=== PATIENT | female | born 2000 | race Caucasian/White ===

== ENCOUNTER 2025-07-21 18:31 | Inpatient (IN) ==
[2025-07-21] MEDS ORDERED: OXYTOCIN/SODIUM CHLORIDE 500 ML IV PRN (19:04)
[2025-07-21] MEDS ORDERED: fentaNYL 100 MCG/2 ML VIAL IVP PRN (19:04)
[2025-07-21] MEDS ORDERED: LABETALOL 20 MG/4 ML SYRINGE IVP PRN ×3 (19:04)
[2025-07-21] MEDS ORDERED: METOCLOPRAMIDE 10 MG/2 ML VIAL IVP PRN (19:04)
[2025-07-21] MEDS ORDERED: OXYTOCIN 10 UNIT/ML VIAL IM PRN (19:04)
[2025-07-21] MEDS ORDERED: CALCIUM CARBONATE CHEW 500 MG TABLET PO PRN (19:04)
[2025-07-21] MEDS ORDERED: ONDANSETRON ODT 4 MG TABLET PO PRN (19:04)
[2025-07-21] MEDS ORDERED: IBUPROFEN 600 MG TABLET PO PRN (19:04)
[2025-07-21] MEDS ORDERED: ONDANSETRON 4 MG/2 ML VIAL IVP PRN (19:04)
[2025-07-21] MEDS ORDERED: METHYLERGONOVINE 0.2 MG/ML VIAL IM PRN (19:04)
[2025-07-21] MEDS ORDERED: CARBOPROST TROMETHAMINE 250 MCG/ML VIAL IM PRN (19:04)
[2025-07-21] MEDS ORDERED: hydrALAZINE INJ 20 MG/ML VIAL IVP PRN ×2 (19:04)
[2025-07-21] MEDS ORDERED: METOCLOPRAMIDE 10 MG TABLET PO PRN (19:04)
[2025-07-21] MEDS ORDERED: LACTATED RINGERS 1,000 ML IV PRN (19:04)
[2025-07-21] MEDS ORDERED: ACETAMINOPHEN 500 MG TABLET PO PRN (19:04)
[2025-07-21] MEDS ORDERED: TERBUTALINE 1 MG/ML VIAL SUBQ PRN (19:04)
[2025-07-21] MEDS ORDERED: TRANEXAMIC ACID IN NACL 1,000 MG/100 ML BAG IV PRN (19:04)
[2025-07-21 21:34] LABS: HCT - HEMATOCRIT 37.0 % (37.0-47.0); HGB - HEMOGLOBIN 12.6 g/dL (12.0-16.0); MEAN PLATELET VOLUME 9.9 fL (7.9-10.8); NRBC ABSOLUTE COUNT (AUTO) 0.00 x10^3/uL; NUCLEATED RED BLOOD CELLS AUTO 0.0 /100WBC; PLT - PLATELET COUNT 218 10^3/uL (130-450); RED CELL DISTRIBUTION WIDTH 13.1 % (12.0-15.0)
--- NOTE | 2025-07-21 21:42 | ANESTHESIA PROCEDURE NOTE ---
Pre-Anesthesia VS, & Labs Diagnosis Surgical Diagnosis:: intrauterine demise Procedure Procedure: epidural for Vitals Vital Signs: Temp Pulse Resp BP Pulse Ox 36.7 C 93 15 128/81 99 07/21/25 20:51 07/21/25 20:51 07/21/25 20:51 07/21/25 20:51 07/21/25 20:51 NPO Last Fluid Intake: t/o noc Last Food Intake: lunch Is Patient ?: Yes Lab Results Lab results reviewed: Yes Meds/Allgy Home Medications Ambulatory Orders Medication Instructions Recorded Confirmed cod liver oil PO 07/21/25 07/21/25 magnesium chloride PO 07/21/25 07/21/25 vits no.130-ferrous fum 1 tab PO QDAY 5 07/21/25 27 mg iron-folic acid 800 mcg tablet ( Vitamin) Allergies Allergies Allergy/AdvReac Type Severity Reaction Status Date / Time No Known Drug Allergies Allergy Verified 07/21/25 16:18 PFSH Active Problems All Active Problems (Updated 07/21/25 @ 19:05 by Amira Gonzalez MD) Encounter for induction of labor (Acute) demise (Acute) Surgical History Surgical History (Updated 07/21/25 @ 21:41 by Pramod Alvarez CRNA) [place] teeth extracted Family History Family History (Updated 07/21/25 @ 16:18 by Chioma Dye MA) Grandfather Asthma Diabetes Congenital heart disease High blood pressure Grandmother Cancer Social History Social History (Updated 07/21/25 @ 16:20 by Chioma Dye MA) Smoking Status: Never smoker Second hand tobacco smoke exposure: No Do you dip or chew tobacco?: No Do you vape?: No Living arrangement: At home Marital Status: Living Condition: With spouse/s.o. and With family Support Person: Yes Physical Activity: other Level: Independent Frequency: Occasional Substance Use: denies use Are you sexually active?: Yes Anesthesia Exam (Expanded) Exam General: Alert, Oriented x3 and Cooperative Dental: WNL Mouth Openin Fingerbreadth Neck Mobility: Normal Respiratory: No respiratory distress Cardiovascular: Regular rate Neurological: Normal speech Mental/Cognitive Status: Alert/Oriented X3 and Normal for patient Cognitive Status: Within normal limits Exam Exam Vital Signs: Vital Signs x48h Temp Pulse Resp BP Pulse Ox 07/21/25 20:51 36.7 C 93 15 128/81 99 Plan Plan Anesthesia Type: Epidural Consent for Procedure(s) Verified and Reviewed: Yes Code Status: Attempt Resuscitation ASA Classification ASA classification: 2-Mild systemic disease Is this case an emergency?: No
[2025-07-21 21:50] LABS: ALT ALANINE AMINOTRANSFERASE 12.0 IU/L (10-60); AST ASPARTATE AMINOTRANSFERASE 15.0 IU/L (10-42); BUN - BLOOD UREA NITROGEN 10.0 mg/dL (6-20); CARBON DIOXIDE - CO2 24.0 mmol/L (21-32); CREATININE 0.5 mg/dL (0.6-1.3); GFR - MDRD 150.0 (>89)
--- NOTE | 2025-07-21 22:06 | Ultrasound Report ---
PROCEDURE: US OB Follow up INDICATIONS: confirmation of IUFD, gender if possible OUTSIDE/PRIOR DATING DATA: Working ARNOLDO: 09/26/2025. TECHNIQUE: Real-time scanning was performed of the fetus, with image documentation and biometric measurements. Endovaginal scanning: Not performed. COMPARISON: None. FINDINGS: General: A single living intrauterine gestation is present. Presentation: Breech Placenta: Placental position is anterior, without previa. Amniotic fluid index: 12 cm, within normal limits for gestational age. Largest pocket 4.3 cm. heart rate: No cardiac motion on cine. No color flow. No motion on M-mode. Maternal cervical canal: Not well seen. biometrics: Biparietal diameter: 7.1 cm, 28 weeks 3 days. 2nd percentile. Head circumference: 28.9 cm, 31 weeks 6 days. 55th percentile. Abdominal circumference: 26.7 cm, 30 weeks 6 days. 58th percentile. Femur length: 5.6 cm, 29 weeks 4 days. 15 percentile. Estimated gestational age from initial scan: 30 weeks 3 days Composite gestational age from present scan: 30 weeks 1 day Estimated weight and percentile: 1556 g, 34th percentile Measurement variability in biometric dating: +/- 10 days from 12-20 weeks gestation, +/- 2 weeks from 20-30 weeks gestation, +/- 3 weeks at 30 weeks gestation or more. Other: No motion. Maternal adnexa are unremarkable. IMPRESSION: 1. Mayes intrauterine at 30 weeks 1 day based on today's ultrasound. No cardiac activity. No motion. Ultrasound findings diagnostic of failure. 2. Normal placenta and amniotic fluid. Reviewed by: Abimael Finney MD on 07/21/2025 10:03 PM PDT Approved by: Abimael Finney MD on 07/21/2025 10:03 PM PDT Station ID: [id number]
--- NOTE | 2025-07-21 23:42 | HISTORY & PHYSICAL EXAMINATION ---
Admit History Smoking Status: Never smoker Other Maternal History Other Maternal History: HPI: Rekha is a 25 yo at 30w3d by known ARNOLDO who is admitted for induction of labor in the setting of IUFD. She has received care with Elizabeth Eckert. Reports that she was feeling normal movement on Sunday, but then on Sunday, realized at the end of the day that she had not felt baby moving. Then, into the night, she still had not felt any movement and saw called her area counselor, was diagnosed with IUFD with ultrasound. She denies any recent illness. Reports having some nausea on Sunday but attributed that to eating food outside of normal. No recent febrile illnesses. Reports has been uncomplicated. She did not have an anatomy ultrasound or genetic screening. She reports occasional maria g gray, but denies any regular painful contractions, LOF, vaginal bleeding. She reports that her mom was recently diagnosed with Factor V Leiden. records reviewed: - Rh neg - declined rhogam at 29wks as partner is non Rh neg - Antibody screen neg - No glucola, did 7 days of finger sticks which were normal - RPR non reactive - Rubella immune - HepBsAg non reactive - GC/CT neg - TSH 0.64 - Ferritin 48 PE: Vitals signs reviewed Gen: NAD Resp: non labored respirations Abd: gravid, non tender. Ext: trace LE edema. SVE: attempted, however, Rekha very uncomfortable so did not complete. On Ultrasound, breech presentation noted. We discussed risks/benefits of external cephalic version versus proceeding with IOL with breech presentation, and she did desire trial of ECV. She was not mary ellen prior or during ECV attempt so terbutaline was not administered. I attempted a forward role for baby 3 times, elevated the breech out of the pelvis without success. I then attempted a backward roll, also without success. Recommended no further attempts. Formal US ordered to confirm IUFD: PROCEDURE: US OB Follow up INDICATIONS: confirmation of IUFD, gender if possible OUTSIDE/PRIOR DATING DATA: Working ARNOLDO: 09/26/2025. TECHNIQUE: Real-time scanning was performed of the fetus, with image documentation and biometric measurements. Endovaginal scanning: Not performed. COMPARISON: None. FINDINGS: General: A single living intrauterine gestation is present. Presentation: Breech Placenta: Placental position is anterior, without previa. Amniotic fluid index: 12 cm, within normal limits for gestational age. Largest pocket 4.3 cm. heart rate: No cardiac motion on cine. No color flow. No motion on M-mode. Maternal cervical canal: Not well seen. biometrics: Biparietal diameter: 7.1 cm, 28 weeks 3 days. 2nd percentile. Head circumference: 28.9 cm, 31 weeks 6 days. 55th percentile. Abdominal circumference: 26.7 cm, 30 weeks 6 days. 58th percentile. Femur length: 5.6 cm, 29 weeks 4 days. 15 percentile. Estimated gestational age from initial scan: 30 weeks 3 days Composite gestational age from present scan: 30 weeks 1 day Estimated weight and percentile: 1556 g, 34th percentile Measurement variability in biometric dating: +/- 10 days from 12-20 weeks gestation, +/- 2 weeks from 20-30 weeks gestation, +/- 3 weeks at 30 weeks gestation or more. Other: No motion. Maternal adnexa are unremarkable. IMPRESSION: 1. Mayes intrauterine at 30 weeks 1 day based on today's ultrasound. No cardiac activity. No motion. Ultrasound findings diagnostic of failure. 2. Normal placenta and amniotic fluid. Reviewed by: Abimael Finney MD on 07/21/2025 10:03 PM PDT Approved by: Abimael Finney MD on 07/21/2025 10:03 PM PDT A/P: Rekha is a 25 yo at 30w3d by known ARNOLDO who is admitted for induction of labor in the setting of IUFD. - IUFD - Rh neg, father known Rh neg Labs ordered to evaluate for underlying cause per ACOG recommendations. At this time, Rekha is uncertain about autopsy, placental pathology, and genetic testing. Discussed IOL with breech presentation, alternative would be delivery. ECV attempted, but unsuccessful. We discussed that delivery of the head can take some time after body delivers, possible head entrapement, possibility of needing to use forceps for delivery of the head. She did desire to proceed with IOL. Induction process was reviewed, plan to start with PO misoprostol. Discussed limiting cervical exams. Pain management per her request. Planning for epidural. Amira Gonzalez MD HPI Current : Vital Signs Temperature 36.7 C 07/21/25 20:51 Pulse Rate 93 07/21/25 20:51 Respiratory Rate 15 07/21/25 20:51 Blood Pressure 128/81 07/21/25 20:51 O2 Saturation 99 07/21/25 20:51 Meds/Allgy Home Medications Ambulatory Orders Medication Instructions Recorded Confirmed cod liver oil PO 07/21/25 07/21/25 magnesium chloride PO 07/21/25 07/21/25 vits no.130-ferrous fum 1 tab PO QDAY 5 07/21/25 27 mg iron-folic acid 800 mcg tablet ( Vitamin) Allergies Allergies Allergy/AdvReac Type Severity Reaction Status Date / Time No Known Drug Allergies Allergy Verified 07/21/25 16:18 PFSH Active Problems All Active Problems (Updated 07/21/25 @ 19:05 by Amira Gonzalez MD) Encounter for induction of labor (Acute) demise (Acute) Surgical History Surgical History (Updated 07/21/25 @ 21:41 by Pramod Alvarez CRNA) [place] teeth extracted Family History Family History (Updated 07/21/25 @ 16:18 by Chioma Dye MA) Grandfather Asthma Diabetes Congenital heart disease High blood pressure Grandmother Cancer Social History Social History (Updated 07/21/25 @ 16:20 by Chioma Dye MA) Smoking Status: Never smoker Second hand tobacco smoke exposure: No Do you dip or chew tobacco?: No Do you vape?: No Living arrangement: At home Marital Status: Living Condition: With spouse/s.o. and With family Support Person: Yes Physical Activity: other Level: Independent Frequency: Occasional Substance Use: denies use Are you sexually active?: Yes Physical Abdominal Exam Vital Signs: Temp Pulse Resp BP Pulse Ox 36.7 C 93 15 128/81 99 07/21/25 20:51 07/21/25 20:51 07/21/25 20:51 07/21/25 20:51 07/21/25 20:51 Plan for Labor Plan For Labor I expect patient to be DC'd or transferred within 96 hours.: Yes Conclusion/Plan Problem List (1) Encounter for induction of labor: (2) demise: Lab Results Lab results reviewed: Yes 07/21/25 21:00 07/21/25 21:00
--- NOTE | 2025-07-22 09:13 | PROVIDER PROGRESS NOTE ---
Subjective Subjective Subjective: Patient doing well today. Does states she cramps about 20 minutes after receiving her dose of misoprostol and then mild cramps for an hour then nothing in between doses. She does desire to go home today and says her teacher tutor is willing to manage her home. Current Medications Current Medications Current Medications: Current Medications Generic Name Dose Route Start Last Admin Trade Name Freq PRN Reason Stop Dose Admin Acetaminophen 1,000 mg 07/21/25 19:04 Acetaminophen 500 Mg Tablet PO Q8H PRN Mild Pain or Fever>38C(100.4F) Calcium Carbonate/Glycine 1,000 mg 07/21/25 19:04 Calcium Carbonate Chew 500 Mg Tablet PO Q6HR PRN Heartburn Carboprost Tromethamine 250 mcg 07/21/25 19:04 Carboprost Tromethamine 250 Mcg/Ml Vial IM .ONCE PRN Hemorrhage Fentanyl 50 mcg 07/21/25 19:04 Fentanyl 100 Mcg/2 Ml Vial IVP Q1H PRN Severe Pain (score 7-10) Hydralazine HCl 5 - 10 mg 07/21/25 19:04 Hydralazine Inj 20 Mg/Ml Vial IVP Q20M PRN SBP> or= 160 OR DBP> or= 110 Protocol Hydralazine HCl 10 mg 07/21/25 19:04 Hydralazine Inj 20 Mg/Ml Vial IVP .ONCE PRN SBP> or= 160 OR DBP> or= 110 Protocol Lactated Ringer's 500 mls @ 999 mls/hr 07/21/25 19:04 Lr IV PRN PRN Abdominal Pain Oxytocin/Sodium Chloride 500 mls @ 999 mls/hr 07/21/25 19:04 Pitocin/Sodium Chloride IV PRN PRN POST- HEMORR PREVENTION Protocol 999 MILLIUNIT/MIN Tranexamic Acid 1,000 mg in 100 mls @ 600 mls/hr 07/21/25 19:04 Tranexamic 1,000 Mg/100ml-Nacl IV Q30M PRN EBL >1200mL and within 3hr Ibuprofen 600 mg 07/21/25 19:04 Ibuprofen 600 Mg Tablet PO Q6HR PRN Moderate Pain (Level 4-6) Labetalol HCl 20 - 80 mg 07/21/25 19:04 Labetalol 20 Mg/4 Ml Syringe IVP Q10M PRN SBP> or= 160 OR DBP> or= 110 Protocol Labetalol HCl 20 mg 07/21/25 19:04 Labetalol 20 Mg/4 Ml Syringe IVP .ONCE PRN SBP> or= 160 OR DBP> or= 110 Protocol Labetalol HCl 20 - 40 mg 07/21/25 19:04 Labetalol 20 Mg/4 Ml Syringe IVP Q10M PRN SBP> or= 160 OR DBP> or= 110 Protocol Lidocaine HCl 20 ml 07/21/25 19:04 Lidocaine 1% 20 Ml Mdv ID 07/24/25 19:04 .ONCE PRN PERINEAL REPAIR Methylergonovine Maleate 0.2 mg 07/21/25 19:04 Methylergonovine 0.2 Mg/Ml Vial IM .ONCE PRN Hemorrhage Metoclopramide HCl 5 mg 07/21/25 19:04 Metoclopramide 10 Mg/2 Ml Vial IVP Q6HR PRN Nausea / Vomiting Metoclopramide HCl 5 mg 07/21/25 19:04 Metoclopramide 10 Mg Tablet PO Q6HR PRN Nausea / Vomiting Misoprostol 600 mcg 07/21/25 19:04 Misoprostol 200 Mcg Tablet BC .ONCE PRN Hemorrhage Misoprostol 800 mcg 07/21/25 19:04 Misoprostol 200 Mcg Tablet CO .ONCE PRN Hemorrhage Misoprostol 50 mcg 07/21/25 23:45 07/22/25 06:08 Misoprostol 100 Mcg Tablet PO 07/22/25 17:46 50 mcg Q6H MERT Administration Nifedipine 10 - 20 mg 07/21/25 19:04 Nifedipine 10 Mg Capsule PO Q20M PRN SBP> or= 160 OR DBP> or= 110 Protocol Ondansetron HCl 4 mg 07/21/25 19:04 Ondansetron Odt 4 Mg Tablet PO Q4HR PRN Nausea / Vomiting Ondansetron HCl 4 mg 07/21/25 19:04 Ondansetron 4 Mg/2 Ml Vial IVP PRN PRN Nausea / Vomiting Oxytocin 10 unit 07/21/25 19:04 Oxytocin 10 Unit/Ml Vial IM .ONCE PRN Step One if no IV access. Sodium Chloride 10 ml 07/21/25 19:04 Sodium Chloride Flush 0.9% 10 Ml Syringe IVP PRN PRN NEEDED PER PROVIDER ORDERS Sodium Chloride 10 ml 07/21/25 20:00 Sodium Chloride Flush 0.9% 10 Ml Syringe IVP Q8H MERT Terbutaline Sulfate 0.25 mg 07/21/25 19:04 Terbutaline 1 Mg/Ml Vial SUBQ .ONCE PRN Tachystole Objective Vital Signs/Intake & Output Vital Signs: Vital Signs x48h Temp Pulse Resp BP Pulse Ox 07/22/25 05:54 36.8 C 89 17 112/63 98 Objective General Appearance: positive No acute distress and Alert Lab Results 07/21/25 21:00 07/21/25 21:00 Other Labs: Lab Results x24hrs 07/21/25 07/21/25 07/21/25 Range/Units 21:42 21:42 21:00 WBC 11.9 H (4.8-10.8) x10^3/uL RBC 4.01 L (4.20-5.40) 10^6/uL Hgb 12.6 (12.0-16.0) g/dL Hct 37.0 (37.0-47.0) % MCV 92.3 (81.0-99.0) fL MCH 31.4 H (27.0-31.0) pg MCHC 34.1 (32.0-36.0) g/dL RDW 13.1 (12.0-15.0) % Plt Count 218 (130-450) 10^3/uL MPV 9.9 (7.9-10.8) fL Neut # (Auto) 8.0 H (1.5-6.6) 10^3/uL Lymph # (Auto) 2.7 (1.5-3.5) 10^3/uL [place] # (Auto) 1.1 H (0.0-1.0) 10^3/uL Eos # (Auto) 0.1 (0.0-0.7) 10^3/uL Baso # (Auto) 0.0 (0.0-0.1) 10^3/uL Absolute Nucleated RBC 0.00 x10^3/uL Nucleated RBC % 0.0 /100WBC Sodium 135 (135-145) mmol/L Potassium 3.8 (3.5-4.5) mmol/L Chloride 105 (101-111) mmol/L Carbon Dioxide 24 (21-32) mmol/L Anion Gap 6.0 (6-13) BUN 10 (6-20) mg/dL Creatinine 0.5 L (0.6-1.3) mg/dL Estimated GFR (MDRD) 150 (>89) Glucose 85 (74-104) mg/dL Calcium 9.6 (8.5-10.3) mg/dL Total Bilirubin 0.3 (0.2-1.0) mg/dL AST 15 (10-42) IU/L ALT 12 (10-60) IU/L Alkaline Phosphatase 76 (42-121) IU/L Total Protein 6.8 (6.4-8.9) g/dL Albumin 3.9 (3.2-5.5) g/dL Globulin 2.9 (2.1-4.2) g/dL Albumin/Globulin Ratio 1.3 (1.0-2.2) TSH 2.19 (0.34-5.60) uIU/mL Blood Type O NEGATIVE O NEGATIVE Blood Type Recheck O NEGATIVE Weak D (Du) WEAK-D NEGATIVE Antibody Screen NEGATIVE Maternal Bleed NEGATIVE (NEGATIVE) Assessment/Plan Problem List (1) Encounter for induction of labor: Impression: Will increase dosing from every 6 hours to every 4 hours for cervical ripening. Discussed support delivery and this can take some time. Discussed option of cervical ripening balloon, but patient not tolerating exams and would recommend avoiding that. We discussed the limitations of returning home for cervical ripening and that it is not something that I can recommend. Should she choose to do this, it would be against my advice and should return sooner than later. We discussed the risks of arrest progression, head entrapment, cord abruption or retained placenta. She is willing to return to the hospital when she is feeling regular contractions. (2) demise: Impression: Cervical ripening and induction of labor as above. Only feels occasional contractions at the beginning of her dose.
[2025-07-22] MEDS: SODIUM CHLORIDE FLUSH 0.9% 10 ML SYRINGE IVP SCH (10:05)
[2025-07-22 10:18] VITALS: TEMP 98.4
[2025-07-22 10:54] LABS: ESTIMATED AVERAGE GLUCOSE 85 mg/dL (70-100); HEMOGLOBIN A1c% 4.6 % (4.27-6.07)
[2025-07-22 14:38] VITALS: BP 111/67; O2SAT 97
--- NOTE | 2025-07-22 23:44 | PROVIDER PROGRESS NOTE ---
Labor Progress Note Labor Progress Note Labor Progress Note/Additional Text: Patient continues to contract. Colleen irregularly. Did well start oxytocin, but unable to due to staffing limitations. Will continue misoprostol at this time. Patient comfortable.
[2025-07-23] MEDS: SODIUM CHLORIDE FLUSH 0.9% 10 ML SYRINGE IVP PRN (01:32)
[2025-07-23 05:10] LABS: HIV SCREEN 4TH GENERATION Non Reactive (Non Reactive)
[2025-07-23 06:09] LABS: RPR Non Reactive (Non Reactive)
[2025-07-23] MEDS: LACTATED RINGERS 1,000 ML IV SCH (07:57)
[2025-07-23] MEDS: OXYTOCIN/SODIUM CHLORIDE 500 ML IV SCH (07:58)
--- NOTE | 2025-07-23 19:54 | Discharge Summary ---
Discharge Summary Admit Date: 07/21/25 Discharge Date: 07/23/25 Discharging Provider: Shana Vazquez MD Code Status: Attempt Resuscitation DIAGNOSES Admission Diagnoses: 31 week demise Discharge Diagnoses with Status of Each Condition: same, not delivered HPI History of Present Illness: 25 yo who was getting care with awning craftsman planning home . She did not feel her baby move and it was found to be on US. She came in for further evaluation and delivery. S HOSPITAL COURSE Hospital Course: She was admitted and started on misoprostol to induce labor. She got 6 doses and then rested overnight as staffing was not enough to start her on pitocin. She was on pitocin all day today, mary ellen every 3 min or so with pitocin at 20 and she was barely feeling them. I checked her and could not reach her cervix. The lower uterine segment was bulging some, but the cervix was very posterior. I recommended that they go home and rest and come back in a couple days or in labor. ALLERGIES Allergies Allergy/AdvReac Type Severity Reaction Status Date / Time No Known Drug Allergies Allergy Verified 07/21/25 16:18 MEDICATIONS Ambulatory Orders Medication Instructions Recorded Confirmed cod liver oil PO 07/21/25 07/21/25 magnesium chloride PO 07/21/25 07/21/25 vits no.130-ferrous fum 1 tab PO QDAY 5 07/21/25 27 mg iron-folic acid 800 mcg tablet ( Vitamin) PHYSICAL EXAM AT DISCHARGE Vital Signs: stable, afebrile General Appearance: positive No acute distress Respiratory: positive No respiratory distress Cardiovascular: positive Regular rate & rhythm Extremities: positive Non-tender and No pedal edema Neurologic/Psychiatric: positive Oriented x3 and Other (very sad by why is happening to her ) LABS 07/21/25 21:00 07/21/25 21:00 FOLLOW UP Follow Up: Patient was disharged home. Offered mifepristone to take before coming back to help with the process. They did not want that. will rest and see how they feel. Encouraged no intercourse. TIME SPENT Time Spent in Discharge (Minutes): 65 Discharge Plan Discharge Patient Disposition: CUSTODIAL, Self Care Prescriptions: Continued Vitamin 27 mg iron- 800 mcg tablet 1 tab PO QDAY magnesium chloride PO cod liver oil PO Activity Restrictions/Additional Instructions: pelvic rest, return if bleeding, water breaks, labor. Dr. Gonzalez will check in with you on Sunday am Diet: Regular Print Language: [place] Patient Instructions: Stillbirth (Before Delivery) Follow-up Care: KAMLESH VANEGAS PA-C [Primary Care Provider, Physician Chair Pad Maker] Report called to and time (if no answer, doc. time of each call attempted): no Vitals documented within 30 minutes of discharge?: Yes
[2025-07-24 23:07] LABS: BETA-2 GLYCOPROTEIN I IGG <9 (0-20); BETA-2 GLYCOPROTEIN I IGM <9 (0-32)
== END 2025-07-23 19:00 | disposition home or self-care (01) | DRG 833 ==
LOC: WFO 18:31 → FBP 18:40
PROVIDERS: ADMIT Obstetrics & Gynecology; ATTEND Obstetrics & Gynecology
DX: Z3A.31 31 weeks gestation of pregnancy; O32.1XX0 Maternal care for breech presentation, not applicable or unspecified; O36.4XX0 Maternal care for intrauterine death, not applicable or unspecified

== ENCOUNTER 2025-07-25 05:00 | Inpatient (IN) ==
[2025-07-25] MEDS ORDERED: fentaNYL 100 MCG/2 ML VIAL IVP PRN (05:25)
[2025-07-25] MEDS ORDERED: TRANEXAMIC ACID IN NACL 1,000 MG/100 ML BAG IV PRN (05:25)
[2025-07-25] MEDS ORDERED: CARBOPROST TROMETHAMINE 250 MCG/ML VIAL IM PRN (05:25)
[2025-07-25] MEDS ORDERED: IBUPROFEN 600 MG TABLET PO PRN ×2 (05:25→08:56)
[2025-07-25] MEDS ORDERED: OXYTOCIN 10 UNIT/ML VIAL IM PRN (05:25)
[2025-07-25] MEDS ORDERED: METOCLOPRAMIDE 10 MG/2 ML VIAL IVP PRN (05:25)
[2025-07-25] MEDS ORDERED: ONDANSETRON ODT 4 MG TABLET PO PRN (05:25)
[2025-07-25] MEDS ORDERED: METHYLERGONOVINE 0.2 MG/ML VIAL IM PRN (05:25)
[2025-07-25] MEDS ORDERED: SODIUM CHLORIDE FLUSH 0.9% 10 ML SYRINGE IVP PRN (05:25)
[2025-07-25] MEDS ORDERED: CALCIUM CARBONATE CHEW 500 MG TABLET PO PRN (05:25)
[2025-07-25] MEDS ORDERED: hydrALAZINE INJ 20 MG/ML VIAL IVP PRN ×4 (05:25→08:56)
[2025-07-25] MEDS ORDERED: LABETALOL 20 MG/4 ML SYRINGE IVP PRN ×5 (05:25→08:56)
[2025-07-25] MEDS ORDERED: METOCLOPRAMIDE 10 MG TABLET PO PRN (05:25)
[2025-07-25] MEDS ORDERED: TERBUTALINE 1 MG/ML VIAL SUBQ PRN (05:25)
[2025-07-25] MEDS ORDERED: ACETAMINOPHEN 500 MG TABLET PO PRN ×2 (05:25→08:56)
[2025-07-25] MEDS ORDERED: SODIUM CHLORIDE FLUSH 0.9% 10 ML SYRINGE IVP SCH (06:00)
[2025-07-25] MEDS ORDERED: LIDOCAINE 2%-EPI 1:100000 20 ML MDV ONE (06:06)
[2025-07-25] MEDS ORDERED: ROPIVACAINE 0.2% 200 MG/100 ML BAG EP ONE (06:06)
--- NOTE | 2025-07-25 06:17 | HISTORY & PHYSICAL EXAMINATION ---
Admit History Smoking Status: Never smoker Other Maternal History Other Maternal History: Rekha is a 25 yo at 31w0d who is admitted for management of labor in the setting of know IUFD. She was previously admitted earlier this week for IOL for IUFD, however, after no progress with misoprostol and pitocin, decided to discharge home. At home, she was taking misoprostol every 4 hours which was given to her by her field auditor. Epidural placed soon after admission. Denies F/C, leaking fluid. PE: Vitals signs reviewed Gen: NAD CV: RRR Resp: non labored respirations Abd: gravid, non tender. Ext: no LE edema Bedside US confirmed breech presentation A/P: Rekha is a 25 yo at 31w0d who is admitted for management of labor in the setting of know IUFD. See delivery note for further details. Amira Gonzalez MD Meds/Allgy Home Medications Ambulatory Orders Medication Instructions Recorded Confirmed cod liver oil PO 07/21/25 07/21/25 magnesium chloride PO 07/21/25 07/21/25 vits no.130-ferrous fum 1 tab PO QDAY 5 07/21/25 27 mg iron-folic acid 800 mcg tablet ( Vitamin) Allergies Allergies Allergy/AdvReac Type Severity Reaction Status Date / Time No Known Drug Allergies Allergy Verified 07/21/25 16:18 PFSH Active Problems All Active Problems (Updated 07/24/25 @ 00:00 by ) 30 weeks gestation of (Acute) Encounter for induction of labor (Acute) demise (Acute) Surgical History Surgical History (Updated 07/21/25 @ 21:41 by Pramod Alvarez CRNA) [place] teeth extracted Family History Family History (Updated 07/21/25 @ 16:18 by Chioma Dye MA) Grandfather Asthma Diabetes Congenital heart disease High blood pressure Grandmother Cancer Social History Social History (Updated 07/21/25 @ 16:20 by Chioma Dye MA) Smoking Status: Never smoker Second hand tobacco smoke exposure: No Do you dip or chew tobacco?: No Do you vape?: No Living arrangement: At home Marital Status: Living Condition: With spouse/s.o. and With family Support Person: Yes Physical Activity: other Level: Independent Frequency: Occasional Substance Use: denies use Are you sexually active?: Yes Plan for Labor Plan For Labor I expect patient to be DC'd or transferred within 96 hours.: Yes Conclusion/Plan Lab Results 07/25/25 06:16
[2025-07-25] MEDS: LACTATED RINGERS 1,000 ML IV PRN (06:20)
[2025-07-25 06:24] LABS: HCT - HEMATOCRIT 38.1 % (37.0-47.0); HGB - HEMOGLOBIN 13.0 g/dL (12.0-16.0); MEAN PLATELET VOLUME 9.6 fL (7.9-10.8); NRBC ABSOLUTE COUNT (AUTO) 0.00 x10^3/uL; NUCLEATED RED BLOOD CELLS AUTO 0.0 /100WBC; PLT - PLATELET COUNT 196 10^3/uL (130-450); RED CELL DISTRIBUTION WIDTH 12.9 % (12.0-15.0)
[2025-07-25] MEDS ORDERED: SODIUM CHLORIDE 0.9% 10 ML VIAL ONE (07:04)
[2025-07-25] MEDS ORDERED: fentaNYL 100 MCG/2 ML VIAL ONE (07:04)
[2025-07-25] MEDS ORDERED: LIDOCAINE-PF 2% 10 ML AMP SUBQ ONE (07:04)
[2025-07-25] MEDS ORDERED: ROPIVACAINE 0.2% 200 MG/100 ML BAG EP PRN (07:13)
--- NOTE | 2025-07-25 07:13 | ANESTHESIA PROCEDURE NOTE ---
Pre-Anesthesia VS, & Labs Diagnosis Surgical Diagnosis:: IUFD, active labor Procedure Procedure: vaginal delivery NPO Last Fluid Intake: clear liquids Is Patient ?: Yes Lab Results Current Lab Results: Laboratory Tests 07/25/25 06:16: WBC 10.5, RBC 4.13 L, Hgb 13.0, Hct 38.1, MCV 92.3, MCH 31.5 H, MCHC 34.1, RDW 12.9, Plt Count 196, MPV 9.6, Neut # (Auto) 7.0 H, Lymph # (Auto) 2.3, [place] # (Auto) 1.0, Eos # (Auto) 0.1, Baso # (Auto) 0.0, Absolute Nucleated RBC 0.00, Nucleated RBC % 0.0 Lab results reviewed: Yes 07/25/25 06:16 Meds/Allgy Home Medications Ambulatory Orders Medication Instructions Recorded Confirmed cod liver oil PO 07/21/25 07/21/25 magnesium chloride PO 07/21/25 07/21/25 vits no.130-ferrous fum 1 tab PO QDAY 5 07/21/25 27 mg iron-folic acid 800 mcg tablet ( Vitamin) Allergies Allergies Allergy/AdvReac Type Severity Reaction Status Date / Time No Known Drug Allergies Allergy Verified 07/21/25 16:18 PFSH Active Problems All Active Problems (Updated 07/24/25 @ 00:00 by ) 30 weeks gestation of (Acute) Encounter for induction of labor (Acute) demise (Acute) Surgical History Surgical History (Updated 07/21/25 @ 21:41 by Pramod Alvarez CRNA) [place] teeth extracted Family History Family History (Updated 07/21/25 @ 16:18 by Chioma Dye MA) Grandfather Asthma Diabetes Congenital heart disease High blood pressure Grandmother Cancer Social History Social History (Updated 07/21/25 @ 16:20 by Chioma Dye MA) Smoking Status: Never smoker Second hand tobacco smoke exposure: No Do you dip or chew tobacco?: No Do you vape?: No Living arrangement: At home Marital Status: Living Condition: With spouse/s.o. and With family Support Person: Yes Physical Activity: other Level: Independent Frequency: Occasional Substance Use: denies use Are you sexually active?: Yes POLST Patient has POLST: Yes Anesthesia Exam (Expanded) Exam General: Alert, Oriented x3, Cooperative and Moderate distress Dental: WNL Mouth Openin Fingerbreadth Neck Mobility: Normal Mallampati classification: II Thyromental Distance: 4-6 cm Plan Plan Anesthesia Type: Epidural Consent for Procedure(s) Verified and Reviewed: Yes Code Status: Attempt Resuscitation ASA Classification ASA classification: 2-Mild systemic disease Is this case an emergency?: No
[2025-07-25] MEDS: OXYTOCIN/SODIUM CHLORIDE 500 ML IV PRN (08:27)
[2025-07-25] MEDS ORDERED: NALOXONE 0.4 MG/ML VIAL IVP PRN (08:56)
[2025-07-25] MEDS ORDERED: LABETALOL 5 MG/1 ML 20 ML MDV IVP PRN (08:56)
[2025-07-25] MEDS ORDERED: OXYTOCIN/SODIUM CHLORIDE 500 ML IV PRN (08:56)
[2025-07-25] MEDS ORDERED: SIMETHICONE CHEW 80 MG TABLET PO PRN (08:56)
[2025-07-25] MEDS ORDERED: DOCUSATE SODIUM 100 MG CAPSULE PO SCH (09:00)
[2025-07-25] MEDS ORDERED: WITCH HAZEL/GLYCERIN 1 PAD TOP PRN (09:17)
--- NOTE | 2025-07-25 09:39 | DELIVERY NOTE ---
Delivery Note Labor Labor: positive Spontaneous and Other (Inducted with misoprostol during prior admission and then at home by her bead supervisor, no additional augmentation needed on current admission.) Infant Delivery Method Delivery Method: positive Spontaneous vaginal delivery Presentation Presentation: positive Breech Nuchal Cord Nuchal Cord: positive Present Amniotic Fluid Description Amniotic Fluid Description: positive Clear Episiotomy Type Episiotomy Type: positive None Laceration Laceration: positive None Delivery Outcome Delivery Date: 07/25/25 Delivery Time: 08: Delivery Outcome: positive Stillbirth [place] sex: positive Male Cord Cord: positive 3 vessels Placenta Placenta: positive Intact (Appeared normal.) Estimated Blood Loss Estimated Blood Loss (in cc): 200 Post Delivery Events Post Delivery Events: positive No post delivery events Delivery Comments (Free Text/Narrative) Delivery Comments (Free Text/Narrative): Rekha was examined at bedside after admission, requested SVE to assess cervical dilation. She was very comfortable with epidural in place and not feeling contractions at all. On exam, the presenting part was at +2 station with a bulging bag of water present. She was prepped for delivery. With just a few pushes, she delivered baby en caul. I then ruptured the sac. The cord was clamped and then cut by Jacques. The baby was wrapped in a blanket and placed on Rekha's chest. Pitocin was started by the RN. The perineum was examined and intact. Excellent uterine tone was noted. There was a nuchal cord present. The umbilical cord and placenta otherwise appeared normal. There were no obvious abnormalities present. Amira Gonzalez MD
[2025-07-25 12:45] VITALS: O2SAT 95
[2025-07-25 14:56] VITALS: BP 114/80; TEMP 98.6
--- NOTE | 2025-07-26 11:57 | Discharge Summary ---
Discharge Summary Admit Date: 07/25/25 Discharge Date: 07/25/25 Discharging Provider: Amira Gonzalez MD HPI History of Present Illness: Admission Diagnosis: - [facility] - IUFD diagnosed at 30w2d - Rh negative, father known Rh neg, declines Rhogam Discharge Diagnosis: - Same, delivered Procedures: Hospital Course: Rekha is a 25 yo who presented in labor. She had previously been admitted earlier in the week for IOL for IUFD, but requested discharged home after trial of cervical ripening with misoprostol followed by pitocin administration. Rekha received further doses of misoprostol at home with her fretted instrument repairer, and then presented in labor at 3cm. She received an epidural and progressed rapidly to complete dilation. She had a , delivered breech and en caul with an EBL of approximately 200cc. She and family spent time bonding with baby korin Jenkins after delivery and then elected for discharge home on POD#0. She declines autopsy, genetic testing, or having placenta sent to pathology. At delivery, a nuchal cord was noted, there were no other obvious or placenta/cord anomalies. Laboratory/ultrasound evaluation did not reveal any possible cause for (normal thyroid, diabetes screen, antiphosphoilipid antibodies, normal growth and CANDI). LAB & IMAGING STUDIES: See below PLAN: Plan for discharge home. I offered follow up in our cliniic for visits, however, Rekha prefers following up with her fretted instrument repairer in her home. I encouraged her to reach out in the coming days if she would like to see us. Reviewed home care instructions and medications. Patient counseled regarding signs and symptoms of infection, excessive bleeding, vaginal rest and activity restrictions. Discussed possible medication for suppression, but she is considering donating breast milk (can call us at a later date if she changes her mind). ALLERGIES Allergies Allergy/AdvReac Type Severity Reaction Status Date / Time No Known Drug Allergies Allergy Verified 07/21/25 16:18 MEDICATIONS Ambulatory Orders Medication Instructions Recorded Confirmed cod liver oil PO 07/21/25 07/21/25 magnesium chloride PO 07/21/25 07/21/25 vits no.130-ferrous fum 1 tab PO QDAY 5 07/21/25 27 mg iron-folic acid 800 mcg tablet ( Vitamin) LABS 07/25/25 06:16 TIME SPENT Time Spent in Discharge (Minutes): 20 Discharge Plan Discharge Patient Disposition: Home, Self Care Prescriptions: Continued Vitamin 27 mg iron- 800 mcg tablet 1 tab PO QDAY magnesium chloride PO cod liver oil PO Activity Restrictions/Additional Instructions: You may take over the counter ibuprofen and tylenol as needed for pain. You should follow up with your fretted instrument repairer or in our clinic in at least 1 week. Print Language: [place] Patient Instructions: Stillbirth and Loss ..., Breast Care After Follow-up Care: KAMLESH VANEGAS PA-C [Primary Care Provider, Physician Computer Hardware Designer] Amira Gonzalez MD [Provider Admit Priv/Credential, Obstetrics/Gynecology] Vitals documented within 30 minutes of discharge?: Yes
== END 2025-07-25 15:24 | disposition home or self-care (01) | DRG 807 ==
LOC: WFO 05:00 → FBP 05:03
PROVIDERS: ADMIT Obstetrics & Gynecology; ATTEND Obstetrics & Gynecology